=== PATIENT | male | born 1960 | race African-American/Black ===

== ENCOUNTER 2019-04-01 12:27 | Emergency (ER) | payer BC, SELFPAY | END 2019-04-01 13:37 | disposition home or self-care (01) | LOC: ERS 12:27 | DX: J30.9 Allergic rhinitis, unspecified (principal); Z87.891 Personal history of nicotine dependence | CPT/HCPCS: 99281 ==

== ENCOUNTER 2019-04-07 08:51 | Emergency (ER) | payer BC ==
[2019-04-07] MEDS ORDERED: Dexamethasone 4 MG TAB ONE ×2 (09:28→09:29)
== END 2019-04-07 09:32 | disposition home or self-care (01) ==
LOC: ERS 08:51
DX: J32.1 Chronic frontal sinusitis (principal); Z87.891 Personal history of nicotine dependence
CPT/HCPCS: 99283; J8540